=== PATIENT | female | born 1985 ===

== ENCOUNTER 2023-06-08 22:03 | Emergency (ER) | payer OTHER ==
[~2023-06-08] VITALS: Ht 162.6 cm; Wt 63.5 kg
[2023-06-09] MEDS ORDERED: KETO10TA2 PO (04:07)
== END 2023-06-09 04:34 ==
LOC: ER 22:03
DX: R07.89 Other chest pain (principal); Z88.8 Allergy status to other drugs, medicaments and biological substances